=== PATIENT | female | born 1985 | race Two or more races ===

== ENCOUNTER 2017-06-03 08:27 | Inpatient (IN) | payer OTHER ==
[2017-06-03] VITALS (14 sets, daily range): BP systolic 102–145; BP diastolic 57–79
[~2017-06-03] VITALS: Ht 152.4 cm; Wt 63.5 kg
[~2017-06-03 08:27] MED LIST: Dexamethasone 20mg/5ml IVP ONE; ceFAZolin sod 1 GM in NS 55 ML IVPB ONE
[2017-06-03] MEDS ORDERED: NKM (09:16)
[2017-06-03] MEDS ORDERED: LR 1000ml 1,000 ML IVLG SCH (09:42)
--- NOTE | 2017-06-03 09:44 | Anethesia Preoperative Eval ---
Anesthesia Pre-op PMH/ROS General Date of Evaluation: Jun 03, 2017 Time of Evaluation: 10:51 Anesthesiologist: Spenser ASA Score: ASA 2 Mallampati Score Class I : Soft palate, uvula, fauces, pillars visible Class II: Soft palate, uvula, fauces visible Class III: Soft palate, base of uvula visible Class IV: Only hard plate visible Mallampati Classification: Class I Surgeon: Manuel Diagnosis: Neck Pain Surgical Procedure: C5-6 ADR Anesthesia History: none Social History: current smoker Family History: no anesthesia problems Allergies: Coded Allergies: No Known Allergies (Unverified , 06/03/17) Medications: see eMAR Past Medical History Hematology/Immune: Reports: other - Cervical CA Anesthesia Pre-op Phys. Exam Physician Exam Last Vital Signs Date Time Temp Pulse Resp B/P (MAP) Pulse Ox O2 Delivery O2 Flow Rate FiO2 06/03/17 09:21 98.8 51 17 102/64 98 Room Air Constitutional: NAD Neurologic: CN 2-12 intact Cardiovascular: RRR Respiratory: CTA Gastrointestinal: S/NT/ND Airway Exam Mallampati Score: Class I MO: full ROM: limited Teeth: intact Anesthesia Pre-op A/P Labs Urine Test Test 06/03/17 08:40 Urine HCG, Qualitative Negative Risk Assessment & Plan Assessment: ASA 2 Plan: GA, BIS, GlideScope Status Change Before Surgery: No Pre-Antibiotics Dru Grams Ancef IV Given Within 1 Hr of Incision: Yes Time Given: 11:11 Williams Dueñas MD Jun 03, 2017 09:44
[2017-06-03] MEDS ORDERED: LORazepam Inj 2mg/ml 1ml IV PRN (09:45)
[2017-06-03] MEDS ORDERED: Atropine Inj 1mg/10ml Syr IV PRN (09:45)
[2017-06-03] MEDS ORDERED: oxyCODONE HCL/Acetaminophen 5/325mg ORAL PRN (09:45)
[2017-06-03] MEDS ORDERED: HYDROcodone/Acetamin 7.5/325 tab ORAL PRN (09:45)
[2017-06-03] MEDS ORDERED: DiphenhydrAMINE 50mg/ml Inj IVP PRN (09:45)
[2017-06-03] MEDS ORDERED: Norco 5mg/325mg tab ORAL PRN (09:45)
[2017-06-03] MEDS ORDERED: Labetalol 5mg/ml 20ml vial IV PRN (09:45)
[2017-06-03] MEDS ORDERED: fentaNYL 100 mcg/2 mL IV PRN (09:45)
[2017-06-03] MEDS ORDERED: Ketorolac 30mg Inj IV PRN (09:45)
[2017-06-03] MEDS ORDERED: Acetaminophen (Non formulary) 100 ML IV ONE (09:45)
[2017-06-03] MEDS ORDERED: Hydromorphone 0.5mg/0.5ml inj IVP PRN (09:45)
[2017-06-03] MEDS ORDERED: Ketorolac 60mg Inj IV PRN (09:45)
[2017-06-03] MEDS ORDERED: Surgicel 4in x 8in TOPIC ONE (09:56)
[2017-06-03] MEDS ORDERED: Thrombin 5000 units TOPIC ONE (09:56)
[2017-06-03] MEDS ORDERED: Lidocaine 1% Plain 30 ml INJ ONE (09:57)
[2017-06-03] MEDS ORDERED: Vancomycin 1gm inj IVPB ONE ×2 (09:57→10:15)
[2017-06-03] MEDS ORDERED: Bupivacaine 0.5% Inj 30 ml vial INJ ONE (09:57)
[2017-06-03] MEDS ORDERED: Bacitracin 50000 Units Vial ONE (09:57)
[2017-06-03] MEDS ORDERED: LORazepam 0.5mg tab ORAL PRN ×2 (10:15→16:15)
--- NOTE | 2017-06-03 13:09 | Brief Operative Note ---
Immediate Post Operative Note Operative Note Pre-op Diagnosis: C5-6 HNP post trauma Procedure: Artificial Disc Replacement C5-6 High Power SSEP Xray Post-op Diagnosis: same as pre-op Findings: consistent w/pre-op dx studies Surgeon: Manuel SARMIENTO Casino Slot Supervisor: Johnny AWLKER Anesthesiologist: Spenser Anesthesia: general Specimen: none Complications: none Condition: stable Fluids: anesthesia Estimated Blood Loss: minimal Drains: none Implant(s) used?: Yes VELVET FREGOSO Jun 03, 2017 13:09
--- NOTE | 2017-06-03 13:14 | Immediate Post-Op Evaluation ---
Immediate Post-Op Evalulation Immediate Post-Op Evalulation Procedure: C5-6 ADR Date of Evaluation: Jun 03, 2017 Time of Evaluation: 13:35 IV Fluids: 1000 LR Blood Products: 0 Estimated Blood Loss: 25 Urinary Output: 0 Blood Pressure Systolic: 136 Blood Pressure Diastolic: 59 Pulse Rate: 84 Respiratory Rate: 18 O2 Sat by Pulse Oximetry: 100 Temperature (Fahrenheit): 97.8 Pain Score (1-10): 3 Nausea: No Vomiting: No Complications 0 Patient Status: awake, reacts, patent, extubated, none Hydration Status: adequate Dru Grams Ancef IV Given Within 1 Hr of Incision: Yes Time Given: 11:11 Williams Dueñas MD Jun 03, 2017 13:14
--- NOTE | 2017-06-03 13:30 | 48 Hour Post Anesthesia Eval ---
Post Anesthesia Evaluation Procedure: C5-6 ADR Date of Evaluation: Jun 03, 2017 Time of Evaluation: 15:41 Blood Pressure Systolic: 112 0: 56 Pulse Rate: 61 Respiratory Rate: 18 Temperature (Fahrenheit): 98.2 O2 Sat by Pulse Oximetry: 100 Airway: patent Nausea: No Vomiting: No Pain Intensity: 2 Hydration Status: adequate Cardiopulmonary Status: Stable Mental Status/LOC: patient returned to baseline Follow-up Care/Observations: 0 Post-Anesthesia Complications: 0 Follow-up care needed: ready to discharge Williams Dueñas MD Jun 03, 2017 13:30
[2017-06-03] MEDS: Midazolam 2mg/2ml Inj IVP PRN ×2 (14:25→14:50)
[2017-06-03] MEDS ORDERED: Dronabinol 2.5mg Cap ORAL SCH (15:50)
[2017-06-03] MEDS ORDERED: Morphine Sulfate 4mg/ml Inj IM PRN (15:51)
[2017-06-03] MEDS ORDERED: HYDROmorphone 1mg/ml Carpuject SUBQ PRN (15:51)
[2017-06-03] MEDS ORDERED: Albuterol ud Inhalation HHN PRN (15:52)
[2017-06-03] MEDS ORDERED: D5 1/2NS 1,000 ML IV SCH (15:52)
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
[2017-06-03] MEDS ORDERED: Chloraseptic Spray 20mL Bottle ORAL PRN (17:00)
[2017-06-03] MEDS: HYDROcodone/Acetamin 10/325 tab ORAL PRN ×2 (17:30→20:52)
[2017-06-03] MEDS ORDERED: ceFAZolin sod 1 GM in D5W 55 ML IV SCH (19:00)
[2017-06-03] MEDS ORDERED: Glycopyrrolate 0.2mg/ml 1ml Vial ONE (21:59)
[2017-06-03] MEDS ORDERED: Neostigmine 1mg/ml 10ml Inj ONE (21:59)
[2017-06-03] MEDS ORDERED: Succinylcholine 20mg/ml 10ml vial ONE (21:59)
[2017-06-03] MEDS ORDERED: Sterile Water Irrig 1000ml IRRIG ONE (21:59)
[2017-06-03] MEDS ORDERED: Zemuron 50mg/5ml Inj IV ONE (21:59)
[2017-06-03] MEDS ORDERED: fentaNYL 100 mcg/2 mL IV ONE (21:59)
[2017-06-03] MEDS ORDERED: Propofol 200mg/20ml IV ONE (21:59)
[2017-06-03] MEDS ORDERED: LR 1000ml ONE (21:59)
[2017-06-03] MEDS ORDERED: Midazolam 2mg/2ml Inj ONE (21:59)
[2017-06-03] MEDS ORDERED: NS Irrig 1000ml ONE (21:59)
[2017-06-03] MEDS ORDERED: Labetalol 5mg/ml 20ml vial IV ONE (21:59)
--- NOTE | 2017-06-04 12:05 | Diagnostic Imaging Report ---
Indication: Right upper extremity pain. Fluoroscopic images from surgical procedure. Technique: XRAY C Spine 2-3v, Fluoro > 1h; 3 fluoroscopic images from surgical procedure submitted for archival the PACS. Operating surgeon: Manuel Fluoroscopy time: 15.9 seconds Fluoroscopy dose: 1.8 mGy Comparison: None Findings: Fluoroscopic images from surgical procedure submitted to PACS. Endotracheal tube is in place. Images demonstrate eventual placement of artificial disc at C5-C6. No acute fractures identified. Impression: Fluoroscopic images from spinal surgery. Please see operative report.
--- NOTE | 2017-06-06 08:00 | Operative Note - Dictated ---
DATE OF OPERATION: 06/03/2017 SURGEON: Manny Jackson, Ph.D., M.D. PASTE MIXER LIQUID: AARON Boyd. ANESTHESIOLOGIST: Williams Dueñas M.D. ANESTHESIA: General anesthesia with intubation. ESTIMATED BLOOD LOSS: Minimal. COMPLICATIONS: None. POSTOP CONDITION: Good/stable. PREOPERATIVE DIAGNOSIS: Posttraumatic cervical C5-C6 herniated nucleus pulposus. POSTOPERATIVE DIAGNOSIS: Posttraumatic cervical C5-C6 herniated nucleus pulposus. OPERATIVE PROCEDURES: 1. C5-C6 diskectomy. 2. Artificial disc replacement. 3. High-power magnification dissection. 4. SSEP monitoring. 5. Intraoperative x-rays interpreted by surgeon. DESCRIPTION OF PROCEDURE: The patient was brought to the operating room and laid in supine position. General anesthesia with intubation was induced. IV antibiotics and IV Decadron were administered 30 minutes prior to incision time. The patient was positioned appropriately in the supine position. A spinal needle was taped to the right-side of the neck and a cross-table radiograph was obtained interpreted by Dr. Jackson/surgeon for incision level placement 01:34 mostly on the contralateral aspect of the neck, left transverse incision in a skin fold. The taped needle on the right was removed. Anterior cervical spine was sterilely prepped and draped free in the usual sterile fashion. A 17 mm transverse incision left was sharply placed appropriately through dermis and epidermis. Electrocautery dissection was carried through the subcutaneous tissue. The level of the platysmas muscle was identified, isolated, and transected in line with the incision. Blunt dissection was carried medial to the left sternocleidomastoid muscle and medial to the carotid sheath through the deep cervical and pretracheal fascia to the midline between the right and left longus colli muscles. The spinal needle was bent at 90-degree angle so as to avoid penetration greater than 3 mm into the disc, placed into the disc space under direct high-power magnification. A cross-table radiograph was obtained demonstrating the correct level as C5-C6. Level was marked. Needle removed. Longus coli muscle right/left with subperiosteal elevator over the appropriate interval and retractor placed. Annulotomy performed, diskectomy through the posterior longitudinal ligament. Midas Rolf bur dissection with dissection of a small anterior inferior C5 osteophyte. Posterior longitudinal ligament was resected. Posterior decompression under high-power magnification. No dural tears or leaks reported anytime during the procedure. SSEP monitoring remained stable at all times. Appropriate trial devices were utilized to determine correct size of artificial disc to be placed. Appropriate artificial disc was obtained and mounted and inserted. Midas Rolf bur dissection was additionally utilized to obtain appropriate dimensions, prior to sizing, followed with the appropriate drilling with instrumentation for the disc. Rail cuts were 04:17 to avoid posterior penetration deep into the mid intervertebral body space. The artificial disc was gently tamped into position under high-power magnification. Cross-table imaging was obtained demonstrating the correct level and placement as excellent. Wound was irrigated with antibiotic-containing saline. Exploration revealed no excoriation or laceration of vital structures. 04:54 applied. Reapproximation with Vicryl suture material of the platysmas muscle followed with subcuticular reapproximation of dermis and epidermis. Surgical strips applied transverse to the incision after benzoin was applied to the skin. Dermabond applied over the line. After the Dermabond was dry, a sterile bandage was applied and maintained in place with tape. The patient was awakened/extubated in the operating room and transferred to postop recovery in good stable condition. Manny Jackson M.D. DR: DINORAH JOB#: [id number] CC:
--- NOTE | 2017-06-06 08:42 | Discharge Summary ---
Discharge Summary Hospital Course Date of Admission Jun 03, 2017 at 08:27 Date of Discharge Jun 03, 2017 at 22:00 Admitting Diagnosis Posttraumatic cervical C5-C6 herniated nucleus pulposus. FRANCISCO Garcia is a 32 year old female who was admitted on Jun 03, 2017 at 08:27 for posttraumatic cervical C5-C6 herniated nucleus and elective procedurp pulposus. Consultations dr Duckworth -pain specialist Procedures s/p 06/03/[address] Jackson 1. C5-C6 diskectomy. 2. Artificial disc replacement. 3. High-power magnification dissection. 4. SSEP monitoring. 5. Intraoperative x-rays interpreted by surgeon. Hospital Course s/p surgery course of recovery uneventful initially IVF prophylactic abx pain management pain specialist followed soft diet as tolerated a/emetic prn cervical collar on n/v intact ambulated, voided cleared for dc with f/up as outpatient with surgeon as directed DISCHARGE DIAGNOSIS Posttraumatic cervical C5-C6 herniated nucleus pulposus s/p C5-C6 diskectomy with artificial disk replacement Discharge Condition Upon Discharge: stable Discharge Disposition Patient was discharged to Home (01) Discharge Diagnoses: Discharge Instructions Discharge Instructions Special Instructions I have been assigned to complete a D/C Summary on this account. I was not involved in the patient management Siria Hinds NP ([place]) Jun 06, 2017 08:41
== END 2017-06-03 22:00 | disposition home or self-care (01) | DRG 518 ==
LOC: SDSOVERFLO 08:27 → 3E 15:43
DX: M50.222 Other cervical disc displacement at C5-C6 level (principal); R00.1 Bradycardia, unspecified; G89.18 Other acute postprocedural pain; Z72.89 Other problems related to lifestyle; F17.290 Nicotine dependence, other tobacco product, uncomplicated
CPT/HCPCS: 36415; 72040; 76001; 81025; 86850; 86900; 86901; 87081; 94003; 94150; J2250; J2405; J2710